=== PATIENT | female | born 1940 | race Caucasian/White ===

== ENCOUNTER → 2016-09-27 | Outpatient (CLI) | payer MEDICARE, OTHER | END | disposition home or self-care (01) | LOC: LAB 07:52 | PROVIDERS: ATTEND Internal Medicine | DX: R06.2 Wheezing (principal) | CPT/HCPCS: 87070; 87205 ==

== ENCOUNTER → 2016-11-26 | Outpatient (CLI) | payer MEDICARE, OTHER ==
[~2016-11-26] MED LIST: ALBUTEROL SULF 2.5 MG/0.5ML(0.5%) NEB SOLN ONE
== END | disposition home or self-care (01) ==
LOC: RT 08:24
PROVIDERS: ATTEND Internal Medicine Pulmonary Disease
DX: J44.9 Chronic obstructive pulmonary disease, unspecified (principal)
CPT/HCPCS: 94060

== ENCOUNTER → 2016-12-24 | Outpatient (CLI) | payer MEDICARE, OTHER | LOC: XY 09:26 | PROVIDERS: ATTEND Internal Medicine | DX: M79.605 Pain in left leg (principal); M79.604 Pain in right leg; I73.9 Peripheral vascular disease, unspecified | CPT/HCPCS: 93923; 93925 ==

== ENCOUNTER → 2017-04-17 | Outpatient (CLI) | payer MEDICARE, OTHER ==
[2017-04-17 09:46] LABS: Basophils # (auto) 0.1 uL; Eosinophils # (auto) 0.1 uL; Hematocrit 47.4 % (36.0-46.0); Hemoglobin 15.1 g/dL (12.2-16.2); Lymphocytes # (auto) 1.8 uL; Lymphocytes % (auto) 29.4 % (10.0-50.0); Mean Corpuscular Hemoglobin 31.2 pg (28.0-32.0); Mean Corpuscular Hgb Conc. 31.9 g/dL (32.0-36.0); Mean Corpuscular Volume 97.8 fL (80.0-100.0); Mean Platelet Volume 9.1 fL (7.4-10.4); Monocytes # (auto) 0.6 uL; Monocytes % (auto) 9.7 % (0.0-12.0); Neutrophils # (auto) 3.4 uL; Neutrophils % (auto) 57.9 % (37.0-80.0); Platelet Count (auto) 125 10^3/uL (140-450); Red Cell Distribution Width 14.1 % (11.6-16.0)
[2017-04-17 10:11] LABS: Albumin 3.9 g/dL (3.4-5.0); BUN/Creatinine Ratio 11.5; Bilirubin, Total 0.7 mg/dL (0.2-1.0); Calcium 9.3 mg/dL (8.5-10.1); Potassium 3.5 mmol/L (3.5-5.1); Total Protein 7.5 g/dL (6.4-8.2)
== END | disposition home or self-care (01) ==
LOC: LAB 08:55
DX: I10 Essential (primary) hypertension (principal); M06.9 Rheumatoid arthritis, unspecified; D64.9 Anemia, unspecified; M25.50 Pain in unspecified joint; Z79.899 Other long term (current) drug therapy
CPT/HCPCS: 36415; 80053; 85025; 85652; 86141

== ENCOUNTER → 2017-06-09 | Outpatient (CLI) | payer MEDICARE, OTHER, MEDICAID ==
[~2017-06-09] MED LIST changes: -ALBUTEROL SULF 2.5 MG/0.5ML(0.5%) NEB SOLN ONE; +HYDR-4683 PO; +IPRAAER6 IN; +LACT10SO3 PO; +TIOTCAP IN
[2017-06-09 11:28] LABS: Basophils # (auto) 0 uL; CONDITION Y; Eosinophils # (auto) 0 uL; Eosinophils % (auto) 0.1 % (0.0-7.0); Hematocrit 44.8 % (36.0-46.0); Hemoglobin 14.8 g/dL (12.2-16.2); Lymphocytes # (auto) 1.2 uL; Mean Corpuscular Hemoglobin 32.6 pg (28.0-32.0); Mean Corpuscular Hgb Conc. 33.1 g/dL (32.0-36.0); Mean Corpuscular Volume 98.4 fL (80.0-100.0); Mean Platelet Volume 7.9 fL (6.9-10.8); Monocytes # (auto) 0.9 uL; Monocytes % (auto) 9.1 % (0.0-12.0); Neutrophils # (auto) 7.3 uL; Neutrophils % (auto) 77.8 % (37.0-80.0); Platelet Count (auto) 276 10^3/uL (140-450); White Blood Cell 9.4 10^3/uL (4.4-10.8)
[2017-06-09 12:01] LABS: Urine Bilirubin Negative (Negative); Urine Blood TRACE /uL (Negative); Urine Color Yellow (Yellow); Urine Glucose Normal (Normal); Urine Ketone Negative (Negative); Urine Nitrite Negative (Negative); Urine RBC 1 /hpf (0 - 4); Urine Squamous Epithelial Cell FEW /hpf (<5); Urine Urobilinogen Normal (Negative)
[2017-06-09 12:28] LABS: Albumin 3.3 g/dL (3.4-5.0); BUN/Creatinine Ratio 16.9; Bilirubin, Total 0.6 mg/dL (0.2-1.0); Calcium 7.6 mg/dL (8.5-10.1); Total Protein 7.1 g/dL (6.4-8.2)
[2017-06-09 13:04] LABS: Potassium 2.8 mmol/L (3.5-5.1)
[2017-06-10 05:08] LABS: Thyroid Peroxidase (TPO) Ab 11 IU/mL (0-34)
[2017-06-10 15:09] LABS: Sjogren's Anti-SS-A Antibody >8.0 AI (0.0-0.9)
[2017-06-12 15:09] LABS: Anti-intermyofibrillar Ab Negative (Neg:<1:20); Anti-sarcolemma Antibody Negative (Neg:<1:20)
== END | disposition home or self-care (01) ==
LOC: LAB 10:42
PROVIDERS: ATTEND Internal Medicine
DX: N39.0 Urinary tract infection, site not specified (principal); R10.13 Epigastric pain; L30.9 Dermatitis, unspecified; Z68.1 Body mass index [BMI] 19.9 or less, adult; D48.5 Neoplasm of uncertain behavior of skin
CPT/HCPCS: 36415; 80053; 81001; 84484; 85025; 85652; 86141; 86225; 86235

== ENCOUNTER 2017-07-09 15:17 | Inpatient (IN) | payer MEDICARE, OTHER ==
[~2017-07-09] VITALS: Ht 167.6 cm; Wt 46.4 kg
[2017-07-09] MEDS ORDERED: SODIUM CHLORIDE 0.9% 1,000 ML IV ONE (17:22)
[2017-07-09] MEDS ORDERED: DEXAMETHASONE SOD PHOS 4 MG/1ML SDV INJ IV ONE (17:30)
[2017-07-09] MEDS ORDERED: ALBUTEROL SULF 2.5 MG/0.5ML(0.5%) NEB SOLN NEB ONE (17:30)
[2017-07-09] MEDS ORDERED: IPRATROPIUM BROM 0.5 MG/2.5ML INH SOL NEB ONE (17:30)
[2017-07-09 17:44] LABS: Basophils # (auto) 0 uL; Basophils % (auto) 0.2 % (0.0-2.0); Eosinophils # (auto) 0 uL; Hematocrit 38.2 % (36.0-46.0); Hemoglobin 12.6 g/dL (12.2-16.2); Lymphocytes # (auto) 0.4 uL; Lymphocytes % (auto) 3.5 % (10.0-50.0); Mean Corpuscular Volume 99.8 fL (80.0-100.0); Mean Platelet Volume 7.9 fL (6.9-10.8); Monocytes # (auto) 1.1 uL; Monocytes % (auto) 8.8 % (0.0-12.0); Neutrophils # (auto) 10.9 uL; Neutrophils % (auto) 87.5 % (37.0-80.0); Nucleated Red Blood Cells % 0.1 %; Platelet Count (auto) 290 10^3/uL (140-450); Red Cell Distribution Width 14.9 % (11.8-14.3); White Blood Cell 12.4 10^3/uL (4.4-10.8)
[2017-07-09 18:04] LABS: Albumin 2.4 g/dL (3.4-5.0); BUN/Creatinine Ratio 41.4; Bilirubin, Total 0.4 mg/dL (0.2-1.0); Calcium 7.4 mg/dL (8.5-10.1); Magnesium 2.4 mg/dL (1.6-2.6); Potassium 4.2 mmol/L (3.5-5.1); Total Protein 6.2 g/dL (6.4-8.2)
[2017-07-09] MEDS ORDERED: AZITHROMYCIN 500MG/D5W 250ML 250 ML IV ONE (22:45)
[2017-07-09] MEDS ORDERED: cefTRIAXone 1GM/50ML D5W 50 ML IV ONE (22:45)
[2017-07-10] MEDS ORDERED: ALBUTEROL SULF 2.5 MG/0.5ML(0.5%) NEB SOLN NEB PRN (02:00)
[2017-07-10] MEDS ORDERED: DOCUSATE SOD 100 MG CAP PO PRN (02:00)
[2017-07-10] MEDS ORDERED: IPRATROPIUM BROM 0.5 MG/2.5ML INH SOL NEB PRN (02:00)
[2017-07-10] MEDS ORDERED: NICOTINE 21MG/24 HR TOPICAL PATCH TD ONE (02:00)
[2017-07-10] MEDS ORDERED: NITROGLYCERIN 0.4 MG SL TAB SL PRN (02:00)
[2017-07-10] MEDS ORDERED: ONDANSETRON HCL 4 MG/2 ML VIAL IV PRN (02:00)
[2017-07-10] MEDS ORDERED: ACETAMINOPHEN 325 MG TAB PO PRN (02:00)
[2017-07-10] MEDS ORDERED: MORPHINE SULF INJ 2 MG/ML SYRINGE 1ML IV PRN (02:00)
[2017-07-10] MEDS: HYDROcodone-ACET 5/325MG TAB PO PRN ×3 (08:15→20:31)
[2017-07-10 08:18] LABS: Urine Bilirubin Negative (Negative); Urine Blood TRACE /uL (Negative); Urine Color Yellow (Yellow); Urine Glucose 2+ mg/dL (Normal); Urine Ketone Negative (Negative); Urine Mucus FEW (None Seen); Urine Nitrite Negative (Negative); Urine RBC <1 /hpf (0 - 4); Urine Squamous Epithelial Cell FEW /hpf (<5); Urine Urobilinogen Normal (Negative); Urine pH 5.5 (5.0-8.0)
[2017-07-10] MEDS ORDERED: LACT10SO3 PO (09:42)
[2017-07-10] MEDS ORDERED: HYDR-4683 PO (09:42)
[2017-07-10] MEDS ORDERED: IPRAAER6 IN (09:42)
[2017-07-10] MEDS ORDERED: TIOTCAP IN (09:42)
[2017-07-10] MEDS: ENOXAPARIN SOD 40 MG/0.4 ML SYRINGE SC SCH (10:30)
[2017-07-10] MEDS: FAMOTIDINE 20 MG TAB PO SCH ×2 (10:30→21:48)
[2017-07-10 16:20] VITALS: BP 141/76
[2017-07-10 18:00] VITALS: BP 141/76
[2017-07-10] MEDS: AZITHROMYCIN 500MG/D5W 250ML 250 ML IV SCH (21:47)
[2017-07-10 21:59] VITALS: BP 172/94
[2017-07-10] MEDS ORDERED: cefTRIAXone 1GM/50ML D5W 50 ML IV SCH (22:00)
[2017-07-10] MEDS: TEMAZEPAM 15 MG CAP PO PRN (23:56)
[2017-07-10] MEDS: AMPICILLIN 500 MG CAP PO SCH (23:56)
[2017-07-11] VITALS (7 sets, daily range): BP systolic 130–154; BP diastolic 70–82
[2017-07-11 05:36] LABS: Basophils # (auto) 0 uL; Eosinophils # (auto) 0 uL; Eosinophils % (auto) 0.1 % (0.0-7.0); Hematocrit 44.4 % (36.0-46.0); Hemoglobin 14.5 g/dL (12.2-16.2); Lymphocytes # (auto) 0.8 uL; Lymphocytes % (auto) 8.5 % (10.0-50.0); Mean Corpuscular Hemoglobin 32.7 pg (28.0-32.0); Mean Corpuscular Hgb Conc. 32.8 g/dL (32.0-36.0); Mean Corpuscular Volume 99.8 fL (80.0-100.0); Mean Platelet Volume 7.2 fL (6.9-10.8); Monocytes # (auto) 0.8 uL; Monocytes % (auto) 9.3 % (0.0-12.0); Neutrophils # (auto) 7.2 uL; Neutrophils % (auto) 82.1 % (37.0-80.0); Nucleated Red Blood Cells % 0.2 %; Platelet Count (auto) 371 10^3/uL (140-450); Red Cell Distribution Width 15.2 % (11.8-14.3); White Blood Cell 8.8 10^3/uL (4.4-10.8)
[2017-07-11 05:55] LABS: Albumin 2.3 g/dL (3.4-5.0); BUN/Creatinine Ratio 35.9
[2017-07-11] MEDS: AMPICILLIN 500 MG CAP PO SCH ×4 (05:59→23:30)
[2017-07-11 06:06] LABS: Bilirubin, Total 0.4 mg/dL (0.2-1.0); Total Protein 6.3 g/dL (6.4-8.2)
[2017-07-11] MEDS: HYDROcodone-ACET 5/325MG TAB PO PRN ×3 (06:36→23:30)
[2017-07-11] MEDS: ALBUTEROL SULF 2.5 MG/0.5ML(0.5%) NEB SOLN NEB SCH ×4 (08:14→19:51)
[2017-07-11] MEDS: IPRATROPIUM BROM 0.5 MG/2.5ML INH SOL NEB SCH ×4 (08:14→19:51)
[2017-07-11] MEDS: ENOXAPARIN SOD 40 MG/0.4 ML SYRINGE SC SCH (10:02)
[2017-07-11] MEDS: FAMOTIDINE 20 MG TAB PO SCH ×2 (10:02→22:00)
[2017-07-11] MEDS: AZITHROMYCIN 500MG/D5W 250ML 250 ML IV SCH (22:00)
[2017-07-12] VITALS (7 sets, daily range): BP systolic 128–163; BP diastolic 75–111
[2017-07-12] MEDS: AMPICILLIN 500 MG CAP PO SCH ×4 (06:38→18:01)
[2017-07-12] MEDS: HYDROcodone-ACET 5/325MG TAB PO PRN ×4 (06:39→21:44)
[2017-07-12] MEDS: ALBUTEROL SULF 2.5 MG/0.5ML(0.5%) NEB SOLN NEB SCH ×4 (07:17→18:51)
[2017-07-12] MEDS: IPRATROPIUM BROM 0.5 MG/2.5ML INH SOL NEB SCH ×4 (07:17→18:51)
[2017-07-12] MEDS: FAMOTIDINE 20 MG TAB PO SCH ×2 (09:53→21:43)
[2017-07-12] MEDS: ENOXAPARIN SOD 40 MG/0.4 ML SYRINGE SC SCH (09:53)
[2017-07-12] MEDS ORDERED: methylPREDNISolone SOD SUCC 40 MG/ML VL IV ONE (13:30)
[2017-07-12] MEDS ORDERED: FUROSEMIDE 20 MG/2 ML VIAL IV ONE (13:30)
[2017-07-12] MEDS ORDERED: POTASSIUM CHL 20 Meq TABLET PO ONE (13:30)
[2017-07-12] MEDS: CALCIUM CARB 500 MG CHEW TAB PO PRN ×2 (14:09→21:42)
[2017-07-12] MEDS: methylPREDNISolone SOD SUCC 40 MG/ML VL IV SCH (21:42)
[2017-07-12] MEDS: AZITHROMYCIN 500MG/D5W 250ML 250 ML IV SCH (21:48)
[2017-07-13] VITALS (8 sets, daily range): BP systolic 134–163; BP diastolic 61–90
[2017-07-13] MEDS: AMPICILLIN 500 MG CAP PO SCH ×4 (01:00→18:17)
[2017-07-13] MEDS: TEMAZEPAM 15 MG CAP PO PRN ×2 (01:04→22:09)
[2017-07-13] MEDS: HYDROcodone-ACET 5/325MG TAB PO PRN ×4 (04:50→19:37)
[2017-07-13] MEDS: IPRATROPIUM BROM 0.5 MG/2.5ML INH SOL NEB SCH ×4 (06:48→18:31)
[2017-07-13] MEDS: ALBUTEROL SULF 2.5 MG/0.5ML(0.5%) NEB SOLN NEB SCH ×4 (06:48→18:31)
[2017-07-13] MEDS ORDERED: NICOTINE 21MG/24 HR TOPICAL PATCH TD SCH (10:00)
[2017-07-13] MEDS: ENOXAPARIN SOD 40 MG/0.4 ML SYRINGE SC SCH (10:11)
[2017-07-13] MEDS: methylPREDNISolone SOD SUCC 40 MG/ML VL IV SCH ×2 (10:12→22:07)
[2017-07-13] MEDS: FAMOTIDINE 20 MG TAB PO SCH ×2 (10:12→22:09)
[2017-07-13] MEDS: NICOTINE 21MG/24 HR TOPICAL PATCH TD SCH (15:00)
[2017-07-13] MEDS: AZITHROMYCIN 500MG/D5W 250ML 250 ML IV SCH (22:09)
[2017-07-13] MEDS: CALCIUM CARB 500 MG CHEW TAB PO PRN (22:10)
[2017-07-14] MEDS: IPRATROPIUM BROM 0.5 MG/2.5ML INH SOL NEB SCH ×4 (00:18→19:55)
[2017-07-14] MEDS: ALBUTEROL SULF 2.5 MG/0.5ML(0.5%) NEB SOLN NEB SCH ×4 (00:18→19:55)
[2017-07-14] MEDS: AMPICILLIN 500 MG CAP PO SCH ×4 (00:31→18:02)
[2017-07-14] MEDS: HYDROcodone-ACET 5/325MG TAB PO PRN ×5 (00:36→21:00)
[2017-07-14 05:00] VITALS: BP 140/90
[2017-07-14 09:00] VITALS: BP 131/93
[2017-07-14] MEDS: Boost Breeze 8 Ounces PO SCH ×3 (10:43→18:02)
[2017-07-14] MEDS: methylPREDNISolone SOD SUCC 40 MG/ML VL IV SCH ×2 (10:44→20:58)
[2017-07-14] MEDS: FAMOTIDINE 20 MG TAB PO SCH ×2 (10:44→21:00)
[2017-07-14] MEDS: ENOXAPARIN SOD 40 MG/0.4 ML SYRINGE SC SCH (10:44)
[2017-07-14] MEDS: NICOTINE 21MG/24 HR TOPICAL PATCH TD SCH (10:45)
[2017-07-14 13:00] VITALS: BP 149/86
[2017-07-14 17:00] VITALS: BP 163/88
[2017-07-14 20:00] VITALS: BP 153/79
[2017-07-14] MEDS: TEMAZEPAM 15 MG CAP PO PRN (20:59)
[2017-07-14] MEDS: CALCIUM CARB 500 MG CHEW TAB PO PRN (20:59)
[2017-07-14] MEDS: AZITHROMYCIN 500MG/D5W 250ML 250 ML IV SCH (21:00)
[2017-07-14 22:06] VITALS: BP 153/79
[2017-07-15] MEDS: HYDROcodone-ACET 5/325MG TAB PO PRN ×5 (00:34→19:52)
[2017-07-15] MEDS: AMPICILLIN 500 MG CAP PO SCH ×5 (00:40→23:57)
[2017-07-15 06:00] VITALS: BP 153/74
[2017-07-15] MEDS: IPRATROPIUM BROM 0.5 MG/2.5ML INH SOL NEB SCH ×5 (06:09→20:26)
[2017-07-15] MEDS: ALBUTEROL SULF 2.5 MG/0.5ML(0.5%) NEB SOLN NEB SCH ×5 (06:09→20:26)
[2017-07-15 08:00] VITALS: BP 137/61
[2017-07-15] MEDS: Boost Breeze 8 Ounces PO SCH ×3 (08:00→18:00)
[2017-07-15 09:00] VITALS: BP 137/61
[2017-07-15] MEDS: FAMOTIDINE 20 MG TAB PO SCH ×2 (10:00→21:12)
[2017-07-15] MEDS: NICOTINE 21MG/24 HR TOPICAL PATCH TD SCH (10:55)
[2017-07-15] MEDS: methylPREDNISolone SOD SUCC 40 MG/ML VL IV SCH ×2 (10:55→21:13)
[2017-07-15] MEDS: ENOXAPARIN SOD 40 MG/0.4 ML SYRINGE SC SCH (10:55)
[2017-07-15 13:00] VITALS: BP 152/94
[2017-07-15 17:00] VITALS: BP 151/82
[2017-07-15] MEDS: TEMAZEPAM 15 MG CAP PO PRN (21:12)
[2017-07-15] MEDS: CALCIUM CARB 500 MG CHEW TAB PO PRN (21:12)
[2017-07-15 22:00] VITALS: BP 144/89
[2017-07-16] VITALS (7 sets, daily range): BP systolic 141–153; BP diastolic 65–98
[2017-07-16] MEDS: HYDROcodone-ACET 5/325MG TAB PO PRN ×3 (03:26→12:15)
[2017-07-16] MEDS: AMPICILLIN 500 MG CAP PO SCH ×3 (05:16→18:00)
[2017-07-16] MEDS: ALBUTEROL SULF 2.5 MG/0.5ML(0.5%) NEB SOLN NEB SCH ×2 (06:37→11:30)
[2017-07-16] MEDS: IPRATROPIUM BROM 0.5 MG/2.5ML INH SOL NEB SCH ×2 (06:37→11:30)
[2017-07-16] MEDS: Boost Breeze 8 Ounces PO SCH ×3 (08:00→18:00)
[2017-07-16] MEDS ORDERED: AZITHROMYCIN 250 MG TAB PO SCH (10:00)
[2017-07-16] MEDS: NICOTINE 21MG/24 HR TOPICAL PATCH TD SCH (10:06)
[2017-07-16] MEDS: FAMOTIDINE 20 MG TAB PO SCH (10:06)
[2017-07-16] MEDS: ENOXAPARIN SOD 40 MG/0.4 ML SYRINGE SC SCH (10:07)
[2017-07-16] MEDS: methylPREDNISolone SOD SUCC 40 MG/ML VL IV SCH (10:08)
[2017-07-16 10:53] LABS: Allen Test Yes; Base Excess 0.6 mmol/L (-2.0-2.0); Blood COHb 0.9 % (0.5-1.5); Blood MetHb 0.1 % (0.0-1.5); HHb 19.8 % (0.0-5.0); MODE ROOM AIR; O2Hb 79.2 % (94.0-97.0); PCO2 31.4 mmHg (35.0-45.0); PCO2(T) 31.4 mmHg (35.0-45.0); PO2 39.7 mmHg (80.0-100.0); PO2(T) 39.7 mmHg (80.0-100.0); Sample Type Arterial; pH 7.483 (7.350-7.450)
== END 2017-07-16 20:38 | disposition home or self-care (01) | DRG 189 ==
LOC: ER 15:17 → TELE 15:18 → TELE-WESTW 07-10 19:09 → WEST WING 07-12 18:34
PROVIDERS: ADMIT Internal Medicine; ATTEND Internal Medicine Pulmonary Disease
DX: J96.20 Acute and chronic respiratory failure, unspecified whether with hypoxia or hypercapnia (principal); J18.9 Pneumonia, unspecified organism; R64 Cachexia; E44.0 Moderate protein-calorie malnutrition; J44.0 Chronic obstructive pulmonary disease with (acute) lower respiratory infection; E87.1 Hypo-osmolality and hyponatremia; J44.1 Chronic obstructive pulmonary disease with (acute) exacerbation; Z96.659 Presence of unspecified artificial knee joint; Z90.710 Acquired absence of both cervix and uterus; Z72.0 Tobacco use; F10.20 Alcohol dependence, uncomplicated
CPT/HCPCS: 36415; 36600; 71010; 71020; 73502; 80053; 81001; 82805; 83735; 84443; 84484; 85025; 87040; 93005; 93306; 94640; 94761; 96365; 96366; 96368; 96375; 97116; 97530; J0696; J1100; J2405

== ENCOUNTER 2017-10-02 16:07 | Inpatient (IN) | payer MEDICARE, OTHER ==
[~2017-10-02] VITALS: Ht 160 cm; Wt 35.1 kg
[~2017-10-02 16:07] MED LIST changes: -IPRAAER6 IN; -TIOTCAP IN
[2017-10-02] MEDS ORDERED: SODIUM CHLORIDE 0.9% 1,000 ML IV ONE (16:31)
[2017-10-02 17:23] LABS: Basophils # (auto) 0.1 uL; Basophils % (auto) 0.7 % (0.0-2.0); Eosinophils # (auto) 0.1 uL; Eosinophils % (auto) 0.7 % (0.0-7.0); Hematocrit 37.6 % (36.0-46.0); Hemoglobin 12.2 g/dL (12.2-16.2); Lymphocytes % (auto) 23.2 % (10.0-50.0); Mean Corpuscular Hemoglobin 31.9 pg (28.0-32.0); Mean Corpuscular Hgb Conc. 32.6 g/dL (32.0-36.0); Monocytes # (auto) 0.7 uL; Monocytes % (auto) 7.8 % (0.0-12.0); Neutrophils % (auto) 67.6 % (37.0-80.0); Platelet Count (auto) 330 10^3/uL (140-450); Red Blood Cells 3.83 10^6/uL (4.0-5.20); Red Cell Distribution Width 13.9 % (11.8-14.3); White Blood Cell 8.8 10^3/uL (4.4-10.8)
[2017-10-02] MEDS ORDERED: LEVOFLOXACIN 500MG 100 ML IV ONE (19:00)
[2017-10-02 19:14] LABS: Urine Bacteria NONE SEEN /hpf (None Seen); Urine Blood TRACE /uL (Negative); Urine Specific Gravity 1.007 (1.001-1.035); Urine WBC 3 /hpf (0 - 5)
[2017-10-02 19:22] LABS: Albumin 3.1 g/dL (3.4-5.0); BUN/Creatinine Ratio 18.5; Calcium 8.7 mg/dL (8.5-10.1); Magnesium 1.8 mg/dL (1.6-2.6); Potassium 3.3 mmol/L (3.5-5.1)
[2017-10-02 19:32] LABS: Bilirubin, Total 0.4 mg/dL (0.2-1.0); Total Protein 7.2 g/dL (6.4-8.2)
[2017-10-02] MEDS ORDERED: POTASSIUM CHL 10% (20 MEQ/15ML) 15ml ORAL SOLN GT ONE (21:15)
[2017-10-02] MEDS ORDERED: FUROSEMIDE 20 MG/2 ML VIAL IV ONE (21:15)
[2017-10-02] MEDS ORDERED: ACETAMINOPHEN 500 MG TAB PO PRN (21:15)
[2017-10-02] MEDS ORDERED: ONDANSETRON HCL 4 MG/2 ML VIAL IV PRN (21:15)
[2017-10-02] MEDS: AZITHROMYCIN 500MG/ 250ML 250 ML IV SCH (21:19)
[2017-10-02] MEDS: PANTOPRAZOLE 40 MG TAB PO SCH (21:19)
[2017-10-02 21:39] VITALS: BP 163/91
[2017-10-02] MEDS: HYDROcodone-ACET 5/325MG TAB PO PRN (23:23)
[2017-10-02 23:57] VITALS: BP 154/95
[2017-10-03] VITALS: BP 152/90
[2017-10-03] MEDS: IPRATROPIUM BROM 0.5 MG/2.5ML INH SOL NEB SCH ×4 (00:49→19:39)
[2017-10-03] MEDS: ALBUTEROL SULF 2.5 MG/0.5ML(0.5%) NEB SOLN NEB SCH ×4 (00:49→19:39)
[2017-10-03] MEDS ORDERED: PANT40TA2 PO (01:22)
[2017-10-03] MEDS: HYDROcodone-ACET 5/325MG TAB PO PRN ×4 (03:46→21:31)
[2017-10-03 05:26] VITALS: BP 135/87
[2017-10-03 06:49] LABS: Basophils # (auto) 0.1 uL; Basophils % (auto) 1.1 % (0.0-2.0); Eosinophils # (auto) 0.1 uL; Eosinophils % (auto) 0.5 % (0.0-7.0); Hematocrit 37.3 % (36.0-46.0); Hemoglobin 12.3 g/dL (12.2-16.2); Lymphocytes # (auto) 1.8 uL; Lymphocytes % (auto) 19.5 % (10.0-50.0); Mean Corpuscular Hemoglobin 31.8 pg (28.0-32.0); Mean Corpuscular Hgb Conc. 33.1 g/dL (32.0-36.0); Mean Corpuscular Volume 96.1 fL (80.0-100.0); Monocytes # (auto) 0.8 uL; Monocytes % (auto) 8.5 % (0.0-12.0); Neutrophils # (auto) 6.5 uL; Neutrophils % (auto) 70.4 % (37.0-80.0); Platelet Count (auto) 348 10^3/uL (140-450); Red Blood Cells 3.88 10^6/uL (4.0-5.20); Red Cell Distribution Width 13.6 % (11.8-14.3); White Blood Cell 9.3 10^3/uL (4.4-10.8)
[2017-10-03 07:01] LABS: Calcium 8.8 mg/dL (8.5-10.1); Potassium 3.3 mmol/L (3.5-5.1)
[2017-10-03 09:08] VITALS: BP 144/92
[2017-10-03] MEDS: PANTOPRAZOLE 40 MG TAB PO SCH (10:03)
[2017-10-03] MEDS: AZITHROMYCIN 500MG/ 250ML 250 ML IV SCH (10:03)
[2017-10-03] MEDS ORDERED: POTASSIUM CHL 20 Meq TABLET PO ONE (10:30)
[2017-10-03] MEDS: BUDESONIDE (INHALATION) 0.5 MG/2 ML NEB NEB SCH ×2 (12:09→19:57)
[2017-10-03 20:00] VITALS: BP 138/86
[2017-10-03 22:00] VITALS: BP 138/86
[2017-10-03] MEDS: TEMAZEPAM 15 MG CAP PO PRN (23:09)
[2017-10-04] MEDS: HYDROcodone-ACET 5/325MG TAB PO PRN ×4 (02:08→21:59)
[2017-10-04 06:00] VITALS: BP 148/98
[2017-10-04] MEDS: BUDESONIDE (INHALATION) 0.5 MG/2 ML NEB NEB SCH ×2 (06:32→19:08)
[2017-10-04] MEDS: ALBUTEROL SULF 2.5 MG/0.5ML(0.5%) NEB SOLN NEB SCH ×4 (06:32→19:08)
[2017-10-04] MEDS: IPRATROPIUM BROM 0.5 MG/2.5ML INH SOL NEB SCH ×4 (06:32→19:08)
[2017-10-04 07:14] LABS: Basophils # (auto) 0.1 uL; Basophils % (auto) 0.8 % (0.0-2.0); Eosinophils # (auto) 0.1 uL; Hematocrit 37.3 % (36.0-46.0); Hemoglobin 12.2 g/dL (12.2-16.2); Lymphocytes # (auto) 1.9 uL; Lymphocytes % (auto) 25.3 % (10.0-50.0); Mean Corpuscular Hemoglobin 31.9 pg (28.0-32.0); Mean Corpuscular Hgb Conc. 32.8 g/dL (32.0-36.0); Mean Corpuscular Volume 97.3 fL (80.0-100.0); Monocytes # (auto) 0.5 uL; Monocytes % (auto) 7.4 % (0.0-12.0); Neutrophils # (auto) 4.8 uL; Neutrophils % (auto) 65.5 % (37.0-80.0); Nucleated Red Blood Cells % 0.1 %; Platelet Count (auto) 321 10^3/uL (140-450); Red Blood Cells 3.84 10^6/uL (4.0-5.20); White Blood Cell 7.3 10^3/uL (4.4-10.8)
[2017-10-04 07:46] LABS: BUN/Creatinine Ratio 19.2; Calcium 8.9 mg/dL (8.5-10.1)
[2017-10-04 09:00] VITALS: BP 127/86
[2017-10-04 10:25] VITALS: BP 152/90
[2017-10-04] MEDS: PANTOPRAZOLE 40 MG TAB PO SCH (10:41)
[2017-10-04] MEDS: AZITHROMYCIN 500MG/ 250ML 250 ML IV SCH (10:42)
[2017-10-04 13:00] VITALS: BP 117/72
[2017-10-04 17:00] VITALS: BP 168/89
[2017-10-04 22:08] VITALS: BP 109/82
[2017-10-04] MEDS: TEMAZEPAM 15 MG CAP PO PRN (23:44)
[2017-10-05] MEDS: ALBUTEROL SULF 2.5 MG/0.5ML(0.5%) NEB SOLN NEB SCH ×4 (00:29→18:37)
[2017-10-05] MEDS: IPRATROPIUM BROM 0.5 MG/2.5ML INH SOL NEB SCH ×4 (00:29→18:37)
[2017-10-05] MEDS: HYDROcodone-ACET 5/325MG TAB PO PRN ×4 (02:16→20:25)
[2017-10-05 06:00] VITALS: BP 148/91
[2017-10-05] MEDS: BUDESONIDE (INHALATION) 0.5 MG/2 ML NEB NEB SCH ×2 (06:09→18:37)
[2017-10-05 07:30] LABS: BUN/Creatinine Ratio 21.3; Calcium 8.9 mg/dL (8.5-10.1); Potassium 4.5 mmol/L (3.5-5.1)
[2017-10-05 07:32] LABS: Basophils # (auto) 0.1 uL; Eosinophils # (auto) 0.1 uL; Eosinophils % (auto) 1.1 % (0.0-7.0); Hematocrit 37.8 % (36.0-46.0); Hemoglobin 12.7 g/dL (12.2-16.2); Lymphocytes # (auto) 2.3 uL; Lymphocytes % (auto) 27.2 % (10.0-50.0); Mean Corpuscular Hemoglobin 32.3 pg (28.0-32.0); Mean Corpuscular Hgb Conc. 33.5 g/dL (32.0-36.0); Mean Corpuscular Volume 96.4 fL (80.0-100.0); Monocytes # (auto) 0.7 uL; Monocytes % (auto) 8.7 % (0.0-12.0); Neutrophils # (auto) 5.3 uL; Platelet Count (auto) 347 10^3/uL (140-450); Red Blood Cells 3.92 10^6/uL (4.0-5.20); Red Cell Distribution Width 13.8 % (11.8-14.3); White Blood Cell 8.6 10^3/uL (4.4-10.8)
[2017-10-05 09:00] VITALS: BP 133/86
[2017-10-05] MEDS: AZITHROMYCIN 500MG/ 250ML 250 ML IV SCH (09:52)
[2017-10-05] MEDS: PANTOPRAZOLE 40 MG TAB PO SCH (09:52)
[2017-10-05 13:00] VITALS: BP 104/69
[2017-10-05 16:47] VITALS: BP 138/94
[2017-10-05 18:35] VITALS: BP 138/94
[2017-10-05 22:05] VITALS: BP 131/71
[2017-10-05] MEDS: TEMAZEPAM 15 MG CAP PO PRN (23:12)
[2017-10-06] MEDS: HYDROcodone-ACET 5/325MG TAB PO PRN ×5 (00:44→22:06)
[2017-10-06] MEDS: ALBUTEROL SULF 2.5 MG/0.5ML(0.5%) NEB SOLN NEB SCH ×5 (00:58→19:15)
[2017-10-06] MEDS: IPRATROPIUM BROM 0.5 MG/2.5ML INH SOL NEB SCH ×5 (00:58→19:15)
[2017-10-06 05:38] VITALS: BP 149/95
[2017-10-06] MEDS: BUDESONIDE (INHALATION) 0.5 MG/2 ML NEB NEB SCH ×2 (06:35→19:06)
[2017-10-06 09:00] VITALS: BP 125/86
[2017-10-06] MEDS: PANTOPRAZOLE 40 MG TAB PO SCH (10:06)
[2017-10-06] MEDS: AZITHROMYCIN 500MG/ 250ML 250 ML IV SCH (10:06)
[2017-10-06 13:00] VITALS: BP 101/69
[2017-10-06 17:57] VITALS: BP 115/56
[2017-10-06 20:00] VITALS: BP 121/59
[2017-10-06 22:00] VITALS: BP 121/59
[2017-10-06] MEDS: TEMAZEPAM 15 MG CAP PO PRN (22:06)
[2017-10-07 05:00] VITALS: BP 112/69
[2017-10-07] MEDS: HYDROcodone-ACET 5/325MG TAB PO PRN ×2 (05:25→09:39)
[2017-10-07] MEDS: ALBUTEROL SULF 2.5 MG/0.5ML(0.5%) NEB SOLN NEB SCH ×2 (06:50→11:50)
[2017-10-07] MEDS: BUDESONIDE (INHALATION) 0.5 MG/2 ML NEB NEB SCH (06:50)
[2017-10-07] MEDS: IPRATROPIUM BROM 0.5 MG/2.5ML INH SOL NEB SCH ×2 (06:50→11:50)
[2017-10-07 08:04] VITALS: BP 122/76
[2017-10-07] MEDS: PANTOPRAZOLE 40 MG TAB PO SCH (09:39)
[2017-10-07] MEDS ORDERED: AZITHROMYCIN 250 MG TAB PO SCH (10:00)
[2017-10-07 14:11] VITALS: BP 125/74
[2017-10-07 17:31] VITALS: BP 128/77
== END 2017-10-07 20:55 | DRG 291 ==
LOC: ER 16:07 → EDBD 16:07 → EAST 16:08
PROVIDERS: ADMIT Nurse Practitioner Family; ATTEND Internal Medicine Pulmonary Disease
DX: I11.0 Hypertensive heart disease with heart failure (principal); J18.9 Pneumonia, unspecified organism; J96.20 Acute and chronic respiratory failure, unspecified whether with hypoxia or hypercapnia; E43 Unspecified severe protein-calorie malnutrition; E11.51 Type 2 diabetes mellitus with diabetic peripheral angiopathy without gangrene; L89.609 Pressure ulcer of unspecified heel, unspecified stage; J44.0 Chronic obstructive pulmonary disease with (acute) lower respiratory infection; J44.1 Chronic obstructive pulmonary disease with (acute) exacerbation; E87.1 Hypo-osmolality and hyponatremia; Z68.1 Body mass index [BMI] 19.9 or less, adult; I50.33 Acute on chronic diastolic (congestive) heart failure; Z66 Do not resuscitate; E87.6 Hypokalemia; G89.29 Other chronic pain; R04.0 Epistaxis; Z96.659 Presence of unspecified artificial knee joint; M54.5 Low back pain; Z90.710 Acquired absence of both cervix and uterus; Z80.9 Family history of malignant neoplasm, unspecified; Z82.49 Family history of ischemic heart disease and other diseases of the circulatory system; Z90.49 Acquired absence of other specified parts of digestive tract
CPT/HCPCS: 36415; 71045; 72100; 80048; 80053; 81001; 83605; 83735; 83880; 84484; 85025; 87040; 93005; 94640; 94761; 96361; 96365; 96367; 97116; 97163; 97530; J1956